=== PATIENT | male | born 1995 | race Asian ===

== ENCOUNTER 2020-02-28 08:38 | Emergency (ER) | payer MEDICAID ==
[~2020-02-28] VITALS: Ht 170.2 cm; Wt 98.6 kg
[2020-02-28] MEDS: acetaminophen 325mg tablet PO STA (10:06)
[2020-02-28 11:32] LABS: BASOPHILS % (AUTO) 0.4 % (0-1); EOSINOPHILS % (AUTO) 0 % (0-6); HEMATOCRIT 43.2 % (42.0-52.0); LYMPHOCYTES # (AUTO) 1.4 X10'3 (1.1-4.8); LYMPHOCYTES % (AUTO) 21.4 % (21-51); MEAN CORPUSCULAR HEMOGLOBIN 28.9 PG (27.0-31.0); MEAN CORPUSCULAR HGB CONC 34.7 g/dL (33.0-36.5); MEAN CORPUSCULAR VOLUME 83.2 FL (78-98); MEAN PLATELET VOLUME 7.6 FL (7.4-10.4); MONOCYTES # (AUTO) 0.4 X10'3 (0-0.9); MONOCYTES % (AUTO) 5.9 % (2-12); NEUTROPHILS # (AUTO) 4.9 X10'3 (1.8-7.7); NEUTROPHILS % (AUTO) 72.3 % (42-75); PLATELET COUNT 248 X10'3 (140-440); WHITE BLOOD COUNT 6.7 X10'3 (4.5-11.0)
[2020-02-28 11:40] LABS: CLARITY,URINE SLIGHTLY CLOUDY (Clear); GLUCOSE, URINE NEGATIVE (Neg); KETONES,URINE TRACE mg/dl (Neg); LEUKOCYTE ESTERASE ,URINE NEGATIVE (Neg); NITRITES, URINE NEGATIVE (Neg); OCCULT BLOOD,URINE MODERATE (Neg); PROTEIN,URINE >=300 mg/dl (Neg)
[2020-02-28 11:42] LABS: ALANINE AMINOTRANSFERASE 121 U/L (12-78); ALBUMIN 3.9 G/DL (3.4-5.0); ALBUMIN/GLOBULIN RATIO 0.8 (1.1-1.5); ALKALINE PHOSPHATASE 73 IU/L (46-116); ANION GAP 13 (8-16); ASPARTATE AMINO TRANSFERASE 131 U/L (10-37); BILIRUBIN,TOTAL 0.9 MG/DL (0.1-1.0); BLOOD UREA NITROGEN 10 MG/DL (7-18); BUN/CREATININE RATIO 8.4 (5.4-32.0); CALCIUM 8.5 MG/DL (8.5-10.1); CHLORIDE 98 MMOL/L (99-107); CREATININE 1.19 MG/DL (0.60-1.10); GLUCOSE 103 MG/DL (70-104); POTASSIUM 3.2 MMOL/L (3.5-5.1); SODIUM 133 MMOL/L (135-145); TOTAL CARBON DIOXIDE 21.9 MMOL/L (24-32); TOTAL PROTEIN 8.6 G/DL (6.4-8.2); eGFR 74 ML/MIN
[2020-02-28 11:43] LABS: COLOR,URINE DARK YELLOW (Yellow); UA COLLECTION TYPE CLN CATCH MIDSTREAM
--- NOTE | 2020-02-28 11:50 | NUR ---
PT BROUGHT FROM [facility] TO BED 10
[2020-02-28] MEDS: azithromycin/NS 500mg/250ml 250 ML IV ONE (12:00)
[2020-02-28 12:17] LABS: MUCUS STRANDS MODERATE /LPF (Neg); SQUAMOUS EPITHELIAL CELL,UR FEW /LPF (FEW)
[2020-02-28 12:18] LABS: FINE GRANULAR CAST 0-3 /LPF (NEGATIVE); HYALINE CASTS 0-3 /LPF (NEGATIVE)
[2020-02-28 12:19] LABS: BACTERIA,URINE 2+ /HPF (Neg); RBC,URINE 0-2 /HPF (0-2); WBC,URINE 0-4 /HPF (0-4)
[2020-02-28] MEDS ORDERED: BAMLANIVIMAB INJECTION 700 MG in normal saline 250ml IV soln 250 ML IV ONE (13:10)
[2020-02-28] MEDS: normal saline 1000ML IV soln IV ONE (13:24)
[2020-02-28] MEDS: POTASSIUM BICARB 20meq eff tab 20 MEQ TABLET.EFF PO ONE (13:29)
[2020-02-28] MEDS: BAMLANIVIMAB INJECTION 700 MG in normal saline 250ml IV soln 180 ML IV ONE (14:14)
--- NOTE | 2020-02-28 14:24 | NUR ---
STARTED BAM TREATMENT, AT BEDSIDE MONITORING PT AND VS. PT EDUCATED ON SIDE EFFECTS AND BENIFITS OF MEDICATION. PT WAS ALSO PROVIDED INFORMATION SHEET WELL
--- NOTE | 2020-02-28 14:35 | NUR ---
SAT AT BEDSIDE TO MONITOR PT FOR FIRST 15 OF INFUSION, PT DENIES ANY N/V SOB, AND CHANGE IN CONDITION. WILL CONTINUE TO MONITOR
--- NOTE | 2020-02-28 15:43 | NUR ---
BAM INFUSION FINISHED, WILL MONITOR PT FOR 30 MIN BEFORE DC. PT DENIES ANY NEW SYMPTOMS
--- NOTE | 2020-02-28 15:52 | NUR ---
PT'S TEMP IS 102.0 MD AWARE AND ORDERED 400MG MOTRIN BEFORE D/C
[2020-02-28] MEDS: ibuprofen tablet 400 MG TABLET PO ONE (16:04)
[2020-02-28 16:05] VITALS: BP 161/97
== END 2020-02-28 16:16 | disposition home or self-care (01) ==
LOC: EDBD 08:40 → ER 08:40
DX: U07.1 COVID-19 (principal); J12.89 Other viral pneumonia
CPT/HCPCS: 36415; 71045; 80053; 81001; 83605; 83735; 84145; 85025; 87040; 87502; 87503; 93005; 96361; 96374; 99285; J0456; J7030; J7050; M0239

== ENCOUNTER 2022-08-14 10:23 | Emergency (ER) | payer MEDICAID ==
[~2022-08-14] VITALS: Ht 170.2 cm; Wt 127.4 kg
[2022-08-14 10:23] VITALS: BP 148/96
[2022-08-14] MEDS ORDERED: ketorolac tromethamine 15mg/ml inj. IM ONE (11:50)
[2022-08-14] MEDS ORDERED: CYCL-1 PO (12:48)
== END 2022-08-14 12:42 | disposition home or self-care (01) ==
LOC: ER 10:23
DX: S39.012A Strain of muscle, fascia and tendon of lower back, initial encounter (principal); X58.XXXA Exposure to other specified factors, initial encounter; Y93.89 Activity, other specified; Y92.89 Other specified places as the place of occurrence of the external cause; Y99.8 Other external cause status
CPT/HCPCS: 72100; 96372; 99283; J1885